=== PATIENT | female | born 2000 | race Caucasian/White ===

== ENCOUNTER 2024-12-15 08:14 | Emergency (ER) | payer OTHER, SELFPAY ==
[2024-12-15 08:15] VITALS: BP 141/89
[2024-12-15 08:23] VITALS: BP 122/96
[2024-12-15 08:24] VITALS: BMI 24.9
[2024-12-15] MEDS: NSS 1000 IV (08:29)
[2024-12-15] MEDS: TORADOL 15 MG IV (08:30)
[2024-12-15] MEDS: ZOFRAN 4 MG IV ×2 (08:30→11:08)
--- NOTE | 2024-12-15 08:30 | ED.GENMED ---
History of Present Illness
General
Chief Complaint: Abdominal Pain
Source: patient
Exam Limitations: none
Time Seen by Provider: 12/15/24 08:18
Nursing documentation reviewed up to this point in time: agreed with
History of Present Illness
History of Present Illness:
Patient is a 24-year-old female who presents to the ER with abrupt onset of right lower quadrant pain at 4 AM. Patient reports she had pain similar to this about a year ago in [place] where she resides. That time she was told it was' early
appendicitis.' She was admitted to the hospital given IV antibiotics.
She does complain of nausea and vomiting. She denies any urinary frequency urgency. She does report however that her urine was brown in color yesterday. Denies any fever chills denies back pain. Her last menstrual period several weeks ago. She
is not sexually active and reports she has never been sexually active.
Phy Exam
General Physical Exam
General Presentation: no apparent distress
General age: appears stated age
General Skin: warm and dry
General Habitus: normal
General Mental: alert
General Hydration: appears well hydrated
Course
Orders/Labs/Results
Orders:
Orders
12/15/24 08:26
Ketorolac [Toradol] 15 mg .ROUTE .STK-MED ONE
Ketorolac [Toradol] 15 mg IV NOW STA
Ondansetron Injectable [Zofran] 4 mg .ROUTE .STK-MED ONE
Ondansetron Injectable [Zofran] 4 mg IV NOW STA
12/15/24 08:27
0.9% Sodium Chloride 1000 ml [Nss] 1,000 ml IV BOLUS
US Abdomen - Appendix Only Urgent
Comment:
Reason For Exam: rlq pain
12/15/24 08:28
US Pelvis Only (non-obstetric) Urgent
Comment: NO transvaginal
Reason For Exam: rlq pain
12/15/24 08:29
CT Abd/Pel (IV only)-DH only Urgent
Comment:
Reason For Exam: rlq pain
0.9% Sodium Chloride 1000 ml [Nss] 1,000 ml IV BOLUS
Test Result ONCE
12/15/24 08:30
Complete Blood Count/With Diff Urgent
Comprehensive Metabolic Panel Urgent
HCG, Serum Qualitative Screen Urgent
Lipase Urgent
12/15/24 08:37
Morphine Sulfate 4 mg .ROUTE .STK-MED ONE
Morphine Sulfate 4 mg IV NOW STA
12/15/24 09:02
HYDROmorphone [Dilaudid] 0.5 mg IV NOW STA
12/15/24 10:39
Urinalysis Reflex To Culture Urgent
Date Specimen was Collected: 12/15/24
Time Specimen was Collected: 09:52
Urine Microscopic Reflex Cult Urgent
12/15/24 10:57
HYDROmorphone [Dilaudid] 0.5 mg IV NOW STA
Ondansetron Injectable [Zofran] 4 mg IV NOW STA
12/15/24 11:39
Ibuprofen [Motrin] 600 mg PO NOW STA
Abnormal Lab Results
12/15/24 12/15/24
08:30 10:39
WBC 14.5 H 10^3/uL
(4.8-10.8)
Hct 36.7 L %
(37.0-47.0)
MCV 79.4 L fL
(81.0-99.0)
Plt Count 407 H 10^3/uL
(130-400)
MPV 10.6 H fL
(7.4-10.4)
Abs Immat Gran (auto) 0.1 H 10^3/uL
(0-0.05)
Absolute Lymphs (auto) 7.2 H 10^3/uL
(1.2-3.4)
Absolute Monos (auto) 1.1 H 10^3/uL
(0.1-0.6)
Neutrophils % 40.3 L %
(42.2-75.2)
Chloride 109 H mmol/L
(98-107)
Carbon Dioxide 16 L mmol/L
(22-30)
BUN 18 H mg/dl
(7-17)
Glucose 123 H mg/dl
(70-99)
Alkaline Phosphatase 31 L U/L
(38-126)
Ur Occult Blood Reflex 4+ A
(Negative)
Urine RBC >100 A /HPF
(0-2)
Urine Albumin (Reflex) 2+ A
(Neg - Trace)
12/15/24 08:30
12/15/24 08:30
Vital Signs
Initial and Last Documented VS:
Initial Vital Signs
Temp Pulse Resp BP Pulse Ox
98.1 F 68 18 141/89 98
12/15/24 08:15 12/15/24 08:15 12/15/24 08:15 12/15/24 08:15 12/15/24 08:15
Last Documented Vital Signs
Temp Pulse Resp BP Pulse Ox
98.1 F 94 11 116/93 99
12/15/24 08:15 12/15/24 10:39 12/15/24 10:39 12/15/24 10:38 12/15/24 10:39
Library Media Assistant consulted with Physician
Library Media Assistant consulted with physician?: Yes
Name of Physician Consulted: Blanca
MDM/Problems Addressed
Differential Diagnosis Includes:
Not limited to appendicitis, ovarian cyst, renal colic, UTI, pyelonephritis
MDM/Problems Addressed:
Patient is a 24-year-old female who presented with right-sided abdominal pain that started and woke her up at 4 AM. She does report history of similar pain about a year ago and was told was poss appendicitis however treated with antibiotics and
sent home. This was in [place] where she resides. She is currently visiting. Patient presents very uncomfortable. Patient does report her urine was dark. Patient was medicated for pain given fluids and CAT scan was done which does show
obstructive uropathy secondary to a 3 mm calculus in the proximal right ureter at the UPJ there is suboptimal visualization of the appendix are based on kidney stone and greater than 100 cc of blood in urine symptoms are consistent renal colic.
Patient was medicated for pain here given fluids. Patient is from [place] and mom at bedside reports they do have a urologist who is also a family member with whom they will follow-up with. A prescription was sent to local pharmacy for oxycodone.
Discussed her alternate with Tylenol and ibuprofen and then only oxycodone if needed. Discussed return if any worsening of s/s.
*Radiology
Radiology exam reviewed: radiology read reviewed
*Pulse Oximetry
SaO2: 98
Oxygen Mode of Delivery: Room air
Patient hypoxic: no
*Critical Care Note
Total Time (30-74mins, 75-104mins- exclusive of procedures): Not Applicable
ED Attending Note
-
Portions of this chart may have been created with voice recognition software.� Occasional wrong word or��sound alike� substitutions may have occurred due to the inherent limitations of voice recognition software.
Discharge Plan
Departure
Patient Disposition: Home (Routine Discharge)
Date of Disposition: 12/15/24
Time of Disposition: 11:40
Patient with high blood pressure during this ER visit?: Yes
Condition: Fair
Covid-19: Not Applicable
Discharge Problem:
Renal colic on right side
Instructions: Renal Colic (DC)
Prescriptions:
New
oxycodone 5 mg tablet
5 mg PO Q6H PRN (Reason: Pain) Qty: 10 0RF
Referrals:
UNKNOWN - PT DOES,NOT KNOW [Family Provider]
Activity Restrictions/Additional Instructions:
As documented you were found to have a kidney stone in the proximal right ureter which is 3 mm. Please increase water intake and liquids. Strain all urine. You may take ibuprofen every 8 hours with food and alternate with Tylenol however if
needed a stronger pain medicine was sent to your pharmacy. Take as directed. This medication is a narcotic ;no driving or drink alcohol take this medication. In addition this medication may cause constipation .
be sure to take an [id number] laxative while taking this medication.
please follow-up with urologist .call tomorrow to make an appointment .
return or go to the nearest ER if any worsening of symptoms increasing pain nausea vomiting fever chills
Interventions
Interventions:
*Risk Screen - Suicide Last Done: 12/15/24 08:15
*General Assessment Last Done: 12/15/24 08:15
*Neglect/Abuse Screening Last Done: 12/15/24 08:15
*ED COVID-19 Vaccine History Last Done: 12/15/24 08:25
QE-Tjxbol-Nirqlwwwxv Assessment Last Done: 12/15/24 08:25
Discharge Date and Time
Print Language: MALTESE
[2024-12-15] MEDS: MORPHINE SULFATE 4 MG IV (08:40)
[2024-12-15 08:50] LABS: Hematocrit 36.7 % (37.0-47.0); Hemoglobin 12.7 g/dL (12.0-16.0); Mean Corp Hgb Conc. 34.6 g/dL (33.0-37.0); Mean Corpuscular Volume 79.4 fL (81.0-99.0); Nucleated Red Blood Cells % 0 %; Platelet Count 407 10^3/uL (130-400); Red Cell Dist. Width 12.8 % (11.5-14.5)
[2024-12-15 09:00] VITALS: BP 111/62
[2024-12-15 09:00] LABS: HCG, Serum Qualitative Screen Negative
[2024-12-15 09:02] VITALS: BP 125/94
[2024-12-15 09:22] LABS: ALT (SGPT) 16 U/L (0-35); AST (SGOT) 23 U/L (14-36); Albumin 4.9 g/dl (3.5-5.0); Alkaline Phosphatase 31 U/L (38-126); Blood Urea Nitrogen 18 mg/dl (7-17); Calcium 10.0 mg/dl (8.4-10.2); Carbon Dioxide 16 mmol/L (22-30); Chloride 109 mmol/L (98-107); Estimated Creatinine Clearance 99 ml/min; Glucose 123 mg/dl (70-99); Lipase 187 U/L (23-300); Potassium 3.9 mmol/L (3.5-5.1); Sodium 136 mmol/L (135-145); Total Protein 7.5 g/dl (6.3-8.2); eGFR > 60.00
[2024-12-15 10:38] VITALS: BP 116/93
[2024-12-15] MEDS: DILAUDID 0.5 MG IV ×2 (10:39→11:08)
[2024-12-15 11:00] VITALS: BP 123/87
[2024-12-15 11:13] LABS: Urine Character Clear (Clear)
[2024-12-15 11:29] LABS: Urine Squamous Cell >30 /LPF (Few)
[2024-12-15 11:30] LABS: Urine Red Blood Cell >100 /HPF (0-2)
[2024-12-15] MEDS: MOTRIN 600 MG PO (11:43)
== END 2024-12-15 12:30 | disposition home or self-care (01) ==
LOC: EMR 08:14
PROVIDERS: Nurse Practitioner; EMERGENCY PHYSICIAN Emergency Medicine
DX: N13.2 Hydronephrosis with renal and ureteral calculous obstruction (principal); R11.2 Nausea with vomiting, unspecified
CPT/HCPCS: 96374; 96375; 96376; 96361; 99284; 74177; 76705; 76856; 80053; 81003; 81015; 83690; 84703; 85025; Q9967